=== PATIENT | female | born 1975 ===

== ENCOUNTER 2018-03-23 08:22 | Emergency (ER) | payer OTHER ==
[2018-03-23 08:22] VITALS: BMI 26.7
[2018-03-23 08:40] VITALS: RESP 18; O2SAT 98
--- NOTE | 2018-03-23 10:06 | C.PDOC ---
History Of Present Illness 42 y/o female presents to the ER complaining of vaginal discharge which has been present for the past. Patient states that Time Seen by Provider: 03/23/18 08:27 Chief Complaint (Nursing): Female Genitourinary Past Medical History Vital Signs: Last Vital Signs Temp 98.6 F 03/23/18 08:35 Pulse 90 03/23/18 08:35 Resp 18 03/23/18 08:35 BP 150/92 H 03/23/18 08:35 Pulse Ox 98 03/23/18 08:35 - Medical History PMH: HTN, Hyperthyroidism - Social History Hx Alcohol Use: No Hx Substance Use: No - Immunization History Hx Tetanus Toxoid Vaccination: No Hx Influenza Vaccination: No Hx Pneumococcal Vaccination: No ED Course And Treatment O2 Sat by Pulse Oximetry: 98 Disposition - Disposition
[2018-03-23 10:11] LABS: SQUAMOUS EPITHIAL < 1 /hpf (0-5); URINE BILIRUBIN NEGATIVE (NEGATIVE); URINE BLOOD 1+ (NEGATIVE); URINE CLARITY Clear (Clear); URINE COLOR Straw (YELLOW); URINE GLUCOSE (UA) NORMAL (Normal); URINE LEUKOCYTE ESTERASE NEG Leu/uL (Negative); URINE PROTEIN NEGATIVE (NEGATIVE); URINE UROBILINOGEN NORMAL mg/dL (0.2-1.0)
--- NOTE | 2018-03-23 10:13 | C.PDOC ---
History Of Present Illness 42 y/o female presents to the ER complaining of vaginal itching. Patient states that she had her LMP 2 weeks ago. Denies using new detergents, soaps, and other products. Denies having nausea, vomiting, abdominal pain, dysuria, and hematuria. Time Seen by Provider: 03/23/18 08:27 Chief Complaint (Nursing): Female Genitourinary History Per: Patient History/Exam Limitations: no limitations Onset/Duration Of Symptoms: Days Current Symptoms Are (Timing): Still Present Severity: Moderate Past Medical History Reviewed: Historical Data, Nursing Documentation, Vital Signs Vital Signs: Last Vital Signs Temp 98.6 F 03/23/18 08:35 Pulse 90 03/23/18 08:35 Resp 18 03/23/18 08:35 BP 150/92 H 03/23/18 08:35 Pulse Ox 98 03/23/18 10:22 - Medical History PMH: HTN, Hyperthyroidism Surgical History: No Surg Hx Family History: States: No Known Family Hx - Social History Hx Alcohol Use: No Hx Substance Use: No - Immunization History Hx Tetanus Toxoid Vaccination: No Hx Influenza Vaccination: No Hx Pneumococcal Vaccination: No Review Of Systems Except As Marked, All Systems Reviewed And Found Negative. Constitutional: Negative for: Fever, Chills Gastrointestinal: Negative for: Nausea, Vomiting Genitourinary: Positive for: Vaginal Discharge. Negative for: Dysuria, Hematuria Physical Exam - Physical Exam Appears: Non-toxic, No Acute Distress Skin: Normal Color, Warm, Dry Head: Atraumatic, Normacephalic Eye(s): bilateral: Normal Inspection Nose: Normal Oral Mucosa: Moist Neck: Supple Chest: Symmetrical Cardiovascular: Rhythm Regular Respiratory: Normal Breath Sounds, No Rales, No Rhonchi, No Wheezing Gastrointestinal/Abdominal: Normal Exam, Soft, No Tenderness, No Guarding, No Rebound Pelvic: Vaginal Discharge (white thick cottage cheese-like discharge), No Cervical Motion Tenderness, No Adnexal Tenderness, No Mass (adnexal mass), Other (erythema ) Neurological/Psych: Oriented x3, Normal Speech ED Course And Treatment O2 Sat by Pulse Oximetry: 98 (RA) Pulse Ox Interpretation: Normal Medical Decision Making Medical Decision Making: Assessment: Vaginitis Plan: --[place], GC, RNA, TMA --Diflucan PO --UA Disposition Counseled Patient/Family Regarding: Studies Performed, Diagnosis, Need For Followup, Rx Given - Disposition [facility] Disposition: HOME/ ROUTINE Disposition Time: 11:00 Condition: STABLE Additional Instructions: follow up with clinic within 2 days call to make an appointment take medication as prescribed return to ER if symptoms worsens or progress Prescriptions: Clotrimazole [Clotrimazole-7] 45 gm VG DAILY 7 Days #1 [email or web address] Instructions: Vaginitis, Yeast Infection (DC) Forms: [facility] (Martiniquais), Gen Discharge Inst Martiniquais Print Language: [id number] - Clinical Impression Clinical Impression: Vaginitis, Candidiasis - Scribe Statement The provider has reviewed the documentation as recorded by the Nafisa Henriquez Provider Attestation: All medical record entries made by the Nafisa were at my direction and personally dictated by me. I have reviewed the chart and agree that the record accurately reflects my personal performance of the history, physical exam, medical decision making, and the department course for this patient. I have also personally directed, reviewed, and agree with the discharge instructions and disposition.
[2018-03-23 11:10] VITALS: BP 142/87; PULSE 89; TEMP 98.3
== END 2018-03-23 11:15 | disposition home or self-care (01) ==
LOC: C.ER 08:22
DX: N76.0 Acute vaginitis (principal); B37.3 Candidiasis of vulva and vagina; I10 Essential (primary) hypertension; E05.90 Thyrotoxicosis, unspecified without thyrotoxic crisis or storm